=== PATIENT | male | born 1985 | race Caucasian/White ===

== ENCOUNTER → 2021-12-02 | Emergency (ER) | payer SELFPAY ==
[~2021-12-02] VITALS: Ht 180.3 cm; Wt 103.9 kg
[~2021-12-02] MED LIST: BACITRACIN ZINC OINT PACKET 1 EA PACKET TP ONE; CEPH500C2 PO; IBUP-1955 PO; LIDOCAINE 1% INJ 50 ML MDV IJ ONE
[2021-12-02 11:17] VITALS: BP 135/69
--- NOTE | 2021-12-02 11:18 | NUR ---
PT BIB MOM C/O R chest wall/ Martínez puncture wound s/p slip and impaled on a metal fence. PT A/OX4. TOLERATING R/A WELL. IN NO DISTRESS AT THIS TIME.
--- NOTE | 2021-12-02 11:51 | NUR ---
[facility] [place] [phone]
--- NOTE | 2021-12-02 12:12 | NUR ---
WOUND CARE DONE TO PT'S SHAHEEN BY
== END | disposition home or self-care (01) ==
LOC: ER 11:43
DX: S21.111A Laceration without foreign body of right front wall of thorax without penetration into thoracic cavity, initial encounter (principal); S41.112A Laceration without foreign body of left upper arm, initial encounter; W01.198A Fall on same level from slipping, tripping and stumbling with subsequent striking against other object, initial encounter; Y93.89 Activity, other specified; Y92.89 Other specified places as the place of occurrence of the external cause; Y99.8 Other external cause status
CPT/HCPCS: 12005; 71045; 99283; A6403; J3490; A6253